=== PATIENT | male | born 1995 | race Caucasian/White ===

== ENCOUNTER 2025-04-26 17:25 | Emergency (ER) | payer MEDICAID, SELFPAY ==
[2025-04-26 17:32] VITALS: BP 139/104; PULSE 101; RESP 14; TEMP 36.6; O2SAT 98; BMI 23.5
[2025-04-26 17:36] VITALS: BP 139/104; RESP 18; O2SAT 98
--- NOTE | 2025-04-26 17:37 | W.ED.EXTPRO ---
HPI - Extremity Problem General: Chief complaint: Extremity Problem,Nontraumatic Stated complaint: rt foot inj Time Seen by Provider: 04/26/25 17:33 History of Present Illness: 30-year-old man with no significant past medical history who presents emergency room with right foot pain. He has a warm red painful spot on the top of his foot that is been worsening over last couple days. No evidence of abscess but it does appear to be a cellulitis. No injury. No systemic fevers. No streaking redness. Related Data Previous Rx's ?Medication ?Instructions ?Recorded cephalexin 500 mg tablet 500 mg PO TID 7 days #21 tabs 04/26/25 Allergies Allergy/AdvReac Type Severity Reaction Status Date / Time No Known Allergies Allergy Verified 04/26/25 17:36 Review of Systems Narrative: Constitutional symptoms: Negative except as documented in HPI. Skin symptoms: Negative except as documented in HPI. Eye symptoms: Negative except as documented in HPI. ENMT symptoms: Negative except as documented in HPI. Respiratory symptoms: Negative except as documented in HPI. Cardiovascular symptoms: Negative except as documented in HPI. Gastrointestinal symptoms: Negative except as documented in HPI. Genitourinary symptoms: Negative except as documented in HPI. Musculoskeletal symptoms: Negative except as documented in HPI. Neurologic symptoms: Negative except as documented in HPI. Psychiatric symptoms: Negative except as documented in HPI. Endocrine symptoms: Negative except as documented in HPI. Physical Exam Narrative: EXAM NARRATIVE: General: Alert, no acute distress. Skin: warm and dry. 8 cm oval-shaped erythematous area on the top of his right foot. Mild induration with no fluctuance. Warm to the touch. Painful to touch. Head: Normocephalic Neck: Trachea midline Eye: Extraocular movements are intact. Ears, nose, mouth and throat: Oral mucosa moist Respiratory: Respirations are non-labored Musculoskeletal: Normal ROM Gastrointestinal: Abdomen does not appear distended Neurological: Alert and oriented, No focal neurological deficit observed. Psychiatric: Cooperative, appropriate mood & affect. Course Vital Signs: Vital signs: Vital Signs Temperature 97.9 F 04/26/25 17:32 Pulse Rate 101 H 04/26/25 17:32 Respiratory Rate 14 04/26/25 17:32 Blood Pressure 139/104 04/26/25 17:32 Pulse Oximetry 98 04/26/25 17:32 Oxygen Delivery Me thod Room Air 04/26/25 17:32 MDM - Extremity (Nontraumatic) Medical Decision Making Medical decision making Patient's reason for coming to the emergency room: Foot pain and swelling Social determinants: Patient is unemployed I reviewed the patient's medical record. No previous visits to this facility I reviewed the patient's current home meds: Patient takes no chronic medications Alternate historians: None Differential diagnosis including but not limited to and based on the above HPI, review of systems and physical exam in this patient with lower extremity swelling and redness: Cellulitis, DVT, osteomyelitis, venous stasis dermatitis. This appears to be a fairly simple case of cellulitis. No concern for abscess or osteomyelitis Assessment and plan: Cellulitis ?IM Rocephin in the emergency room - Discharged home - Discussed plan with patient. Answered any questions. - Evaluation and treatment of this problem were appropriate in the emergency setting. No radiology studies performed this visit Discharge Plan Discharge Patient Disposition: Home Clinical Impression: Cellulitis Condition: Stable Prescriptions: New cephalexin 500 mg tablet 500 mg PO TID 7 Days Qty: 21 0RF Discharge Orders: Discharge ED (Routine); Ordered 04/26/25 Ordered By: Mili Hernandez Patient Instructions: Cellulitis (ED), Opioid Safety, Pain Management, Patient Portal & Gume Instructions Activity Restrictions/Additional Instructions: Thank you for choosing [facility] for your healthcare needs today. You have been screened and evaluated and felt safe for discharge. Health conditions do change or evolve sometimes and as such it is important that you follow up with your Primary Doctor to be re checked, 3-5 days is a general good time frame for follow up. You are always welcome to return to the ED for re assessment if your symptoms are worsening or you have new concerns. (Please note that included in your discharge packet is information concerning opioid safety and pain management. This information is given to all patients who are discharged from the ER regardless of their discharge diagnosis or the medicines they usually take or are prescribed.) Print Language: Hungarian Coding Level of Care Code ED [employer] for Rachelle Horner
[2025-04-26] MEDS: cefTRIAXone 1,000 MG in water for injection-sterile 2.1 ML 999 MG IM (18:01)
[2025-04-26 18:06] VITALS: BP 130/106; PULSE 95; RESP 18; O2SAT 100
== END 2025-04-26 18:21 | disposition home or self-care (01) ==
PROVIDERS: Emergency Provider Emergency Medicine
DX: L03.115 Cellulitis of right lower limb (principal)
CPT/HCPCS: 96372; 99284; J0696

== ENCOUNTER 2025-04-27 17:11 | Emergency (ER) | payer MEDICAID, SELFPAY ==
[2025-04-27 17:20] VITALS: BP 133/86; PULSE 117; RESP 16; TEMP 36.7; O2SAT 98; BMI 23.5
--- NOTE | 2025-04-27 17:40 | ED_ITS ---
HPI - Extremity Problem 2 General: Chief complaint: Extremity Problem,Nontraumatic Stated complaint: R foot Pain Time Seen by Provider: 04/27/25 17:40 History of Present Illness: Patient is a 30-year-old male presents to the emergency room due to right foot redness, and pain. Patient was seen here yesterday with redness to the dorsum of his foot. He stated this started 3 days ago. The night before it started, he was playing basketball. He was unaware of any injury. Yesterday in the ED, he did receive Rocephin IM, and was prescribed cephalexin. 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 Denies any nausea, vomiting, or fever. Associated symptoms: Deny fever(s) or rash Related Data Previous Rx's ?Medication ?Instructions ?Recorded cephalexin 500 mg tablet 500 mg PO TID 7 days #21 tab s 04/26/25 diclofenac sodium 75 mg 75 mg PO BID PRN pain #30 ta bs 04/27/25 tablet,delayed release doxycycline hyclate 100 mg capsule 100 mg PO BID 10 da ys #20 caps 04/27/25 Allergies Allergy/AdvReac Type Severity Reaction Status Date / Time No Known Allergies Allergy Verified 04/27/25 17:24 Review of Systems 2 General: Reports: 10 or more systems reviewed and unremarkable except in HPI and below Const: Denies: fever(s) or chills Eyes: Denies: change in vision ENMT: Denies: throat pain Resp: Denies: dyspnea or non-productive cough GI: Denies: abdominal pain, nausea or vomiting Musc: Reports: extremity pain, extremity swelling, joint pain, joint swelling and joint redness; Denies: neck pain Skin/Breast: Reports: pruritus, erythema, skin pain, skin tenderness, skin swelling and changes in skin color; Denies: rash or sores Neuro: Denies: headache(s) or numbness in extremities Physical Exam 2 Const: COMMON NORMALS: no acute distress, average body habitus, patient oriented x3, no limitations, healthy appearing and alert HENMT: COMMON NORMALS: normocephalic and atraumatic HEAD & SCALP: n ormocephalic and atraumatic Neck/C-Spine: COMMON NORMALS: full ROM, no lymphadenopathy, supple and no meningeal signs Lymph: LYMPHATIC: no lymphadenopathy noted Chest: COMMONS NORMALS: normal inspection of the chest and normal palpation of entire chest wall Resp: COMMON NORMALS: normal respiratory effort, No retractions and clear to auscultation bilaterally AUSCULTATION: clear to auscultation bilaterally Cardio: COMMON NORMALS: regular rate and regular rhythm RATE: regular rate RHYTHM: regular rhythm GI: COMMON NORMALS: Normal to inspection, nondistended, normoactive bowel sounds present, Soft to palpation, non-tender and No hepatosplenomegaly present PALPATION: Yes Soft to palpation and Yes No hepatosplenomegaly present : COMMON NORMALS: Yes no CVA tenderness BLADDER/KIDNEY EXAM: Yes no CVA tenderness Back/Pelvis: COMMON NORMALS: no CVA tenderness Extremity: COMMON NORMALS: full ROM and capillary refill normal NARRATIVE EXTREMITY EXAM: Flexion and extension intact. Dorsum has swelling, and redness. Pain with big toe and flexion Neuro: COMMON NORMALS: patient oriented x3 SENSORIUM/ORIENTATION: Yes alert MENINGEAL SIGNS: Yes no meningeal signs Course 2 Vital Signs: Vital signs: Vital Signs Temperature 98.1 F 04/27/25 17:20 Pulse Rate 102 H 04/27/25 19:10 Respiratory Rate 16 04/27/25 17:20 Blood Pressure 144/105 04/27/25 19:10 Pulse Oximetry 98 04/27/25 19:10 Oxygen Delivery Me thod Room Air 04/27/25 17:48 MDM - Extremity (Nontraumatic) Medical Decision Making Patient is a 30-year-old male that presents to the emergency room with 3 days of increasing redness and swelling to his right foot. He was not bit by an insect. He did play basketball the day before, however did not believe he had an injury. He awoke with the swelling. Denies IVDU. 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 He states this is worse than yesterday. Will repeat his Rocephin x 1, and give doxycycline, and continue with cephalexin for MSSA coverage. Discussed with patient. He was unaware of needing MRSA coverage, however since he states this is worse, will expand the coverage. Typically I would utilize cephalexin, then Augmentin, then doxycycline, however given his complaints, we will go ahead and utilize doxycycline with cephalexin as her MSSA coverage Medical Records I reviewed the patient's medical records. Lab Data I reviewed the patient's lab results. 04/27/25 18:07 04/27/25 18:07 Radiology Impressions Foot X-Ray 04/27/25 17:41 IMPRESSION: Soft tissue swelling overlying the dorsal aspect of the forefoot. Laboratory Results WBC 12.24 10^3/uL (3.29-11.43) H 04/27/25 18:07 RBC 5.36 10^6/uL (3.85-5.65) 04/27/25 18:07 Hgb 15.70 g/dL (11.27-16.99) 04/27/25 18:07 Hct 45.5 % (37-53) 04/27/25 18:07 MCV 84.9 fl (82-101) 04/27/25 18:07 MCH 29.3 pg (27-33) 04/27/25 18:07 MCHC 34.5 g/dL (30-55) 04/27/25 18:07 RDW 11.7 % (12.1-15.1) L 04/27/25 18:07 Plt Count 262 10^3/cmm (157-399) 04/27/25 18:07 MPV 9.7 fL (7.4-10.4) 04/27/25 18:07 Neut % (Auto) 75.4 % 04/27/25 18:07 Lymph % (Auto) 14.9 % 04/27/25 18:07 Harding % (Auto) 7.7 % 04/27/25 18:07 Eos % (Auto) 1.2 % 04/27/25 18:07 Baso % (Auto) 0.4 % 04/27/25 18:07 Neut # (Auto) 9.23 10^3/uL (1.8-7.7) H 04/27/25 18:07 Lymph # (Auto) 1.8 10^3/uL (0.8-4.8) 04/27/25 18:07 Harding # (Auto) 0.9 10^3/uL (0.2-0.9) 04/27/25 18:07 Eos # (Auto) 0.2 10^3/uL (0.0-0.8) 04/27/25 18:07 Baso # (Auto) 0.1 10^3/uL (0.0-0.1) 04/27/25 18:07 Nucleated RBC % (auto) 0 % 04/27/25 18:07 Nucleated RBCs # 0.0 /100WBC 04/27/25 18:07 Sodium 137 mmol/L (136-145) 04/27/25 18:07 Potassium 4.1 mmol/L (3.5-5.1) 04/27/25 18:07 Chloride 98 mmol/L (98-107) 04/27/25 18:07 Carbon Dioxide 26 mmol/L (22-29) 04/27/25 18:07 Anion Gap 17.1 (5-19) 04/27/25 18:07 BUN 13 mg/dL (6-20) 04/27/25 18:07 Creatinine 1.2 mg/dL (0.7-1.2) 04/27/25 18:07 GFR Calculation 71.6 mL/min (90-130) L 04/27/25 18:07 Glucose 90 mg/dL (65-115) 04/27/25 18:07 Calculated Osmolality 284 mOsm/kg (285-295) L 04/27/25 18:07 Calcium 9.8 mg/dL (8.5-10.5) 04/27/25 18:07 Total Bilirubin 0.9 mg/dL (0.15-1.2) 04/27/25 18:07 AST 26 U/L (0-40) 04/27/25 18:07 ALT 14 U/L (0-41) 04/27/25 18:07 Alkaline Phosphatase 88 U/L (40-130) 04/27/25 18:07 C-Reactive Protein 28.1 mg/L (0.0-4.9) H 04/27/25 18:07 Total Protein 7.6 g/dL (6.6-8.7) 04/27/25 18:07 Albumin 4.6 g/dL (3.5-5.2) 04/27/25 18:07 Globulin 3.0 g/dL (1.3-4.6) 04/27/25 18:07 All radiology interpretation(s) finalized by discharge ED provider radiology interpretation(s): no acute fx/swelling dorsum noted Discharge Plan Discharge Patient Disposition: Home Clinical Impression: Cellulitis Qualifiers: Site of cellulitis: extremity Site of cellulitis of extremity: lower extremity Laterality: right Qualified Code(s): L03.115 - Cellulitis of right lower limb Condition: Stable Prescriptions: New doxycycline hyclate 100 mg capsule 100 mg PO BID 10 Days Qty: 20 0RF diclofenac sodium 75 mg tablet,delayed release (DR/EC) 75 mg PO BID PRN (Reason: pain) Qty: 30 0RF No Action cephalexin 500 mg tablet 500 mg PO TID 7 Days Qty: 21 0RF Discharge Orders: Discharge ED (Routine); Ordered 04/27/25 Ordered By: Fany Dee Discharge Diet: Usual diet Discharge Activity: Resume usual activity Patient Instructions: Cellulitis (ED), Patient Portal & Gume Instructions Activity Restrictions/Additional Instructions: - We discussed taking both your doxycycline, and cephalexin for coverage. Please take as prescribed. As we discussed, make sure you have some food with your doxycycline so you do not become nauseated. - A probiotic is important to avoid infectious diarrhea. You may also utilize active culture yogurt daily while on antibiotics -Postop shoe: Wear when ambulating -Pain: Utilize Tylenol schedule III times a day, cool air or ice pack to the top of your foot for 20 minutes on -Elevate foot - Return to ED with worsening pain, fever greater than 100.4 ?F Thank you for choosing [facility] for your healthcare needs today. You have been screened and evaluated and felt safe for discharge. Health conditions do change or evolve sometimes and as such it is important that you follow up with your Primary Doctor to be re checked, 3-5 days is a general good time frame for follow up. You are always welcome to return to the ED for re assessment if your symptoms are worsening or you have new concerns Print Language: Dominican Coding Level of Care Code ED [employer] for Rachelle Hroner
--- NOTE | 2025-04-27 17:41 | XRR_ITS ---
PROCEDURE INFORMATION: Exam: XR Right Foot Exam date and time: 04/27/2025 5:43 PM Age: 30 years old Clinical indication: Condition or disease; Other: Cellulitis TECHNIQUE: Imaging protocol: Radiologic exam of the right foot. Views: 3 or more views. COMPARISON: No relevant prior studies available. FINDINGS: Bones/joints: Normal. Soft tissues: Soft tissue swelling overlying the dorsal aspect of the forefoot. XR/XR foot RT min 3V* [id number] IMPRESSION: Soft tissue swelling overlying the dorsal aspect of the forefoot.
[2025-04-27 17:48] VITALS: BP 145/104; PULSE 110; O2SAT 100
[2025-04-27 18:15] LABS: Hematocrit 45.5 % (37-53); Hemoglobin 15.70 g/dL (11.27-16.99); Mean Corpuscular HGB Conc 34.5 g/dL (30-55); Mean Corpuscular Hemoglobin 29.3 pg (27-33); Mean Corpuscular Volume 84.9 fl (82-101); Nucleated Red Blood Cells % 0 %; Platelet Count 262 10^3/cmm (157-399); Red Blood Count 5.36 10^6/uL (3.85-5.65); White Blood Count 12.24 10^3/uL (3.29-11.43)
[2025-04-27 18:42] LABS: Alanine Aminotransferase 14 U/L (0-41); Albumin Level 4.6 g/dL (3.5-5.2); Alkaline Phosphatase 88 U/L (40-130); Anion Gap 17.1 (5-19); Aspartate Amino Transferase 26 U/L (0-40); Blood Urea Nitrogen 13 mg/dL (6-20); Calcium 9.8 mg/dL (8.5-10.5); Carbon Dioxide 26 mmol/L (22-29); Chloride 98 mmol/L (98-107); Globulin 3.0 g/dL (1.3-4.6); Glucose 90 mg/dL (65-115); Osmolality Calculated 284 mOsm/kg (285-295); Potassium 4.1 mmol/L (3.5-5.1); Sodium 137 mmol/L (136-145); Total Protein 7.6 g/dL (6.6-8.7)
[2025-04-27] MEDS: orphenadrine 30 mg/mL Inj 2 mL 60 MG IM (18:48)
[2025-04-27 19:10] VITALS: BP 144/105; PULSE 102; O2SAT 98
== END 2025-04-27 19:10 | disposition home or self-care (01) ==
PROVIDERS: Emergency Provider Physician Assistant
DX: L03.115 Cellulitis of right lower limb (principal)
CPT/HCPCS: 36415; 73630; 80053; 85025; 86140; 96372; 99284; J0696; J1885; J2360; J9999